=== PATIENT | male | born 1955 | race Caucasian/White ===

== ENCOUNTER 2017-01-23 02:32 | Inpatient (IN) | payer OTHER ==
[2017-01-23] VITALS (10 sets, daily range): BP systolic 118–146; BP diastolic 64–84; PULSE 70–77; RESP 16–18; TEMP 98.2–98.8; O2SAT 94–99
[2017-01-23 02:53] LABS: I-STAT POTASSIUM 4.1 MMOL/L (3.5-4.9)
[2017-01-23 02:54] LABS: AUTOMATED NEUTROPHIL # 7.3 TH/MM3 (1.8-7.7); BASOPHIL % 0.5 % (0.0-2.0); EOSINOPHIL # 0.2 TH/MM3 (0-0.4); HEMO FLAGS DIFF FINAL; LYMPH % 19.5 % (9.0-44.0); MEAN CELL VOLUME 91.1 FL (80.0-100.0); MEAN CORPUSCULAR HEMOGLOBIN 31.1 PG (27.0-34.0); MEAN CORPUSCULAR HGB CONC 34.1 % (32.0-36.0); MONO % 7.2 % (0.0-8.0); NEUT % 70.8 % (16.0-70.0); PLATELET COUNT 155 TH/MM3 (150-450); RED BLOOD COUNT 5.06 MIL/MM3 (4.50-5.90); RED CELL DISTRIBUTION WIDTH 13.6 % (11.6-17.2); WHITE BLOOD COUNT 10.4 TH/MM3 (4.0-11.0)
--- NOTE | 2017-01-23 03:11 | RADRPT ---
EXAM DATE/TIME: 01/23/2017 02:57 [facility] COMPARISON: No previous studies available for comparison. INDICATIONS : Trauma alert, industrial work accident RADIATION DOSE: 57.93 CTDIvol (mGy) MEDICAL HISTORY : None SURGICAL HISTORY : None. ENCOUNTER: Initial ACUITY: 1 day PAIN SCALE: 0/10 LOCATION: cranial TECHNIQUE: Multiple contiguous axial images were obtained of the head. Using automated exposure control and adj ustment of the mA and/or kV according to patient size, radiation dose was kept as low as reasonably a chievable to obtain optimal diagnostic quality images. FINDINGS: CEREBRUM: The ventricles are normal for age. No evidence of midline shift, mass lesion, hemorrhage or acute in farction. No extra-axial fluid collections are seen. POSTERIOR FOSSA: The cerebellum and brainstem are intact. The 4th ventricle is midline. The cerebellopontine angle i s unremarkable. EXTRACRANIAL: The visualized portion of the orbits is intact. SKULL: The calvaria is intact. No evidence of skull fracture. CONCLUSION: Normal examination. Earnest Lenz MD on January 23, 2017 at 3:07 Board Certified Radiologist. This report was verified electronically.
[2017-01-23 03:13] LABS: PROTHROMBIN TIME - PATIENT 10.9 SEC (9.8-11.6)
--- NOTE | 2017-01-23 03:16 | RADRPT ---
EXAM DATE/TIME: 01/23/2017 02:29 [facility] COMPARISON: No previous studies available for comparison. INDICATIONS : Twisting of the right wrist in an industrial machine, Trauma Alert. MEDICAL HISTORY : None. SURGICAL HISTORY : None. ENCOUNTER: Initial ACUITY: 1 day PAIN SCORE: 10/10 LOCATION: Right wrist FINDINGS: There is an intra-articular fracture of the distal radius with mild displacement. No dislocation iden tified at the wrist. There is air in the soft tissues. A true lateral film was not obtained. There is overlying bandaging or casting. CONCLUSION: 1. Intra-articular fracture of the distal radius with mild displacement. Earnest Lenz MD on January 23, 2017 at 3:13 Board Certified Radiologist. This report was verified electronically.
[2017-01-23] MEDS ORDERED: IOHEXOL 350 MG/ML 10 ML VIAL (for RAD DIAG) IV ONE (03:19)
--- NOTE | 2017-01-23 03:28 | RADRPT ---
EXAM DATE/TIME: 01/23/2017 02:57 [facility] COMPARISON: No previous studies available for comparison. INDICATIONS : Trauma alert, industrial accident RADIATION DOSE: 20.89 CTDIvol (mGy) MEDICAL HISTORY : None SURGICAL HISTORY : None. ENCOUNTER: Initial ACUITY: 1 day PAIN SCALE: 0/10 LOCATION: neck TECHNIQUE: Volumetric scanning of the cervical spine was performed. Multiplanar reconstructions in the sagittal, coronal and oblique axial planes were performed. Using automated exposure control and adjustment o f the mA and/or kV according to patient size, radiation dose was kept as low as reasonably achievable to obtain optimal diagnostic quality images. FINDINGS: There is no acute fracture or spondylolisthesis. No prevertebral soft tissue swelling. There is moder ate to severe degenerative disc disease in the cervical spine with mild AP canal stenosis at C3-4, C4 -5. There is moderate canal stenosis at C5-6 and C6-7. Multilevel foraminal encroachment also present . CONCLUSION: 1. No acute findings. Moderate degenerative disc disease in the cervical spine with some degenerative related canal stenosis as above. Earnest Lenz MD on January 23, 2017 at 3:23 Board Certified Radiologist. This report was verified electronically.
[2017-01-23] MEDS ORDERED: CHLORHEXIDINE GLUCONATE 2 % 1 PACK (2 CLOTHS) TOP PRN (03:30)
[2017-01-23] MEDS ORDERED: MISCELLANEOUS NURSING INFORMATION XX SCH (03:30)
[2017-01-23] MEDS ORDERED: HYDROmorphone HCL PF 1 MG/ML VIAL IVP PRN (03:30)
[2017-01-23] MEDS ORDERED: SODIUM CHLORIDE 0.9% FLUSH 10 ML FLUSH IV FLUSH PRN (03:30)
--- NOTE | 2017-01-23 03:30 | RADRPT ---
EXAM DATE/TIME: 01/23/2017 02:57 [facility] COMPARISON: No previous studies available for comparison. INDICATIONS : Trauma alert, industrial work accident. RADIATION DOSE: 64.19 CTDIvol (mGy) MEDICAL HISTORY : None SURGICAL HISTORY : None. ENCOUNTER: Initial ACUITY: 1 day PAIN SCORE: 0/10 LOCATION: facial TECHNIQUE: Volumetric scanning of the facial bones was performed. Using automated exposure control and adjustme nt of the mA and/or kV according to patient size, radiation dose was kept as low as reasonably achiev able to obtain optimal diagnostic quality images. FINDINGS: No acute facial bone fracture is identified. There is mucosal thickening in the right maxillary sinus . No bony destructive change. Globes intact. CONCLUSION: 1. No acute findings. Earnest Lenz MD on January 23, 2017 at 3:26 Board Certified Radiologist. This report was verified electronically.
--- NOTE | 2017-01-23 03:38 | RADRPT ---
EXAM DATE/TIME: 01/23/2017 03:06 [facility] COMPARISON: No previous studies available for comparison. INDICATIONS : Trauma alert, industrial accident IV CONTRAST: 97 cc Omnipaque 350 (iohexol) IV ; Cumulative dose for multiple exams. ORAL CONTRAST: No oral contrast ingested. RADIATION DOSE: 17.95 CTDIvol (mGy) ; Combined studies - Thorax/Abdomen/Pelvis MEDICAL HISTORY : None SURGICAL HISTORY : None. ENCOUNTER: Initial ACUITY: 1 day PAIN SCALE: 0/10 LOCATION: ABDOMEN TECHNIQUE: Volumetric scanning of the abdomen and pelvis was performed. Using automated exposure control and ad justment of the mA and/or kV according to patient size, radiation dose was kept as low as reasonably achievable to obtain optimal diagnostic quality images. FINDINGS: Lung bases are clear except minimal dependent atelectasis. No acute findings in the liver, spleen, adrenals, kidneys or pancreas. There are fractures through the right transverse processes of L1-L4. No other fractures are identifie d. CONCLUSION: 1. Fractures of the right transverse processes of L1-L4. No other fractures identified. No visceral i njury identified. No free air or free fluid. Earnest Lenz MD on January 23, 2017 at 3:29 Board Certified Radiologist. This report was verified electronically.
--- NOTE | 2017-01-23 03:42 | RADRPT ---
EXAM DATE/TIME: 01/23/2017 03:06 [facility] COMPARISON: No previous studies available for comparison. INDICATIONS : Trauma alert, industrial accident IV CONTRAST: 97 cc Omnipaque 350 (iohexol) IV ; Cumulative dose for multiple exams. RADIATION DOSE: 17.95 CTDIvol (mGy) ; Combined studies - Thorax/Abdomen/Pelvis MEDICAL HISTORY : None SURGICAL HISTORY : None. ENCOUNTER: Initial ACUITY: 1 day PAIN SCALE: 0/10 LOCATION: chest TECHNIQUE: Volumetric scanning of the chest was performed. Using automated exposure control and adjustment of t he mA and/or kV according to patient size, radiation dose was kept as low as reasonably achievable to obtain optimal diagnostic quality images. FINDINGS: LUNGS: There is no consolidation or pneumothorax. No concerning pulmonary nodule is visualized. PLEURA: There is no pleural thickening or pleural effusion. MEDIASTINUM: The heart and great vessels demonstrate no acute abnormality. There is no mediastinal or hilar lymph adenopathy. AXILLAE: Within normal limits. No lymphadenopathy. SKELETAL: Within normal limits for patient age. MISCELLANEOUS: The visualized upper abdominal organs demonstrate no acute abnormality. CONCLUSION: 1. No acute findings on chest CT. Specifically no effusion or pneumothorax. No fractures identified. Earnest Lenz MD on January 23, 2017 at 3:37 Board Certified Radiologist. This report was verified electronically.
--- NOTE | 2017-01-23 03:48 | RADRPT ---
EXAM DATE/TIME: 01/23/2017 02:29 [facility] COMPARISON: No previous studies available for comparison. INDICATIONS : Trauma Alert, arm twisted in industrial machine and patient slammed to the ground. MEDICAL HISTORY : None. SURGICAL HISTORY : None. ENCOUNTER: Initial ACUITY: 1 day PAIN SCORE: 8/10 LOCATION: Left tibia FINDINGS: There is a mildly displaced proximal fibular shaft fracture. No dislocation. No other fractures ident ified. CONCLUSION: 1. Mildly displaced proximal left fibular shaft fracture. Earnest Lenz MD on January 23, 2017 at 3:45 Board Certified Radiologist. This report was verified electronically.
--- NOTE | 2017-01-23 03:49 | RADRPT ---
EXAM DATE/TIME: 01/23/2017 02:29 [facility] COMPARISON: No previous studies available for comparison. INDICATIONS : Trauma Alert, arm twisted in industrial machine and patient slammed to the ground. MEDICAL HISTORY : None. SURGICAL HISTORY : None. ENCOUNTER: Initial ACUITY: 1 day PAIN SCORE: 0/10 LOCATION: Bilateral chest FINDINGS: A single view of the chest demonstrates the lungs to be symmetrically aerated without evidence of mas s, infiltrate or effusion. The cardiomediastinal contours are unremarkable. Osseous structures are intact. CONCLUSION: No acute disease. Earnest Lenz MD on January 23, 2017 at 3:47 Board Certified Radiologist. This report was verified electronically.
--- NOTE | 2017-01-23 03:49 | RADRPT ---
EXAM DATE/TIME: 01/23/2017 02:29 [facility] COMPARISON: No previous studies available for comparison. INDICATIONS : Trauma Alert, arm twisted in industrial machine and patient slammed to the ground. MEDICAL HISTORY : None. SURGICAL HISTORY : None. ENCOUNTER: Initial ACUITY: 1 day PAIN SCORE: 0/10 LOCATION: Bilateral pelvis FINDINGS: A single frontal view of the pelvis demonstrates no evidence of fracture. The bony pelvic ring is in tact. Bony mineralization is normal. The soft tissues are intact. CONCLUSION: Unremarkable examination of the pelvis. Earnest Lenz MD on January 23, 2017 at 3:47 Board Certified Radiologist. This report was verified electronically.
--- NOTE | 2017-01-23 03:49 | RADRPT ---
EXAM DATE/TIME: 01/23/2017 02:29 [facility] COMPARISON: No previous studies available for comparison. INDICATIONS : Trauma Alert, arm twisted in industrial machine and patient slammed to the ground. MEDICAL HISTORY : None. SURGICAL HISTORY : None. ENCOUNTER: Initial ACUITY: 1 day PAIN SCORE: 5/10 LOCATION: Right ankle FINDINGS: Two view examination was performed of the right ankle. The bony structures are in normal alignment. No evidence of fracture, dislocation, or soft tissue swelling. No radiopaque foreign bodies are see n. Bony mineralization is normal. CONCLUSION: Unremarkable limited examination of the right ankle. Earnest Lenz MD on January 23, 2017 at 3:46 Board Certified Radiologist. This report was verified electronically.
--- NOTE | 2017-01-23 03:51 | HHI.HP ---
History of Present Illness Primary Care Physician Admission Diagnosis Diagnoses: History of Present Illness 61 y.o male-was caught in a machine by his right hand -tossed to the floor- neuro intact,HD normal-c/o pain right UE-has open wound right wrist- neurovascular intact. Review of Systems Constitutional: DENIES: Diaphoretic episodes, Fatigue, Fever, Weight gain, Weight loss, Chills, Dizziness, Change in appetite, Night Sweats Endocrine: DENIES: Heat/cold intolerance, Polydipsia, Polyuria, Polyphagia Eyes: DENIES: Blurred vision, Diplopia, Eye inflammation, Eye pain, Vision loss , Photosensitivity, Double Vision Ears, nose, mouth, throat: DENIES: Tinnitus, Hearing loss, Vertigo, Nasal discharge, Oral lesions, Throat pain, Hoarseness, Ear Pain, Running Nose, Epistaxis, Sinus Pain, Toothache, Odynophagia Respiratory: DENIES: Apneas, Cough, Snoring, Wheezing, Hemoptysis, Sputum production, Shortness of breath Cardiovascular: DENIES: Chest pain, Palpitations, Syncope, Dyspnea on Exertion , PND, Lower Extremity Edema, Orthopnea, Claudication Gastrointestinal: DENIES: Abdominal pain, Black stools, Bloody stools, Constipation, Diarrhea, Nausea, Vomiting, Difficulty Swallowing, Anorexia Genitourinary: DENIES: Sexual dysfunction, Urinary frequency, Urinary incontinence, Urgency, Hematuria, Dysuria, Nocturia, Penile Discharge, Testicular Pain, Testicular Swelling Musculoskeletal: DENIES: Joint pain, Muscle aches, Stiffness, Joint Swelling, Back pain, Neck pain Integumentary: DENIES: Abnormal pigmentation, Nail changes, Pruritus, Rash Hematologic/lymphatic: DENIES: Bruising, Lymphadenopathy Immunologic/allergic: DENIES: Eczema, Urticaria Neurologic: DENIES: Abnormal gait, Headache, Localized weakness, Paresthesias, Seizures, Speech Problems, Tremor, Poor Balance Psychiatric: DENIES: Anxiety, Confusion, Mood changes, Depression, Hallucinations, Agitation, Suicidal Ideation, Homicidal Ideation, Delusions Past Family Social History Allergies: Coded Allergies: No Known Allergies (Unverified , 01/23/17) Past Medical History none Past Surgical History none Reported Medications none Active Ordered Medications fentanyl Family History none Social History no etoh,no drugs Physical Exam Physical Exam GENERAL: This is a well-nourished, well-developed patient, in no apparent distress. SKIN: abrasion forehead 2 cm HEAD: Atraumatic. Normocephalic. No temporal or scalp tenderness. EYES: Pupils equal round and reactive. Extraocular motions intact. No scleral icterus. No injection or drainage. ENT: Nose without bleeding, purulent drainage or septal hematoma. Throat without erythema, tonsillar hypertrophy or exudate. Uvula midline. Airway patent. NECK: Trachea midline. No JVD or lymphadenopathy. Supple, nontender, no meningeal signs. CARDIOVASCULAR: Regular rate and rhythm without murmurs, gallops, or rubs. RESPIRATORY: Clear to auscultation. Breath sounds equal bilaterally. No wheezes , rales, or rhonchi. GASTROINTESTINAL: Abdomen soft, non-tender, nondistended. No hepato-splenomegaly , or palpable masses. No guarding. MUSCULOSKELETAL: right wrist-open wound 6x5cm dirty-anterior,right ankle swelling,left tib fib swelling-neuro vascular intact all4 extremities NEUROLOGICAL: Awake and alert. Cranial nerves II through XII intact. Motor and sensory grossly within normal limits. Five out of 5 muscle strength in all muscle groups. Normal speech. Laboratory Laboratory Tests Test 01/23/17 02:38 White Blood Count 10.4 Red Blood Count 5.06 Hemoglobin 15.7 Bedside Hemoglobin 15.6 Hematocrit 46.0 Bedside Hematocrit 46.0 Mean Corpuscular Volume 91.1 Mean Corpuscular Hemoglobin 31.1 Mean Corpuscular Hemoglobin 34.1 Concent Red Cell Distribution Width 13.6 Platelet Count 155 Mean Platelet Volume 8.7 Neutrophils (%) (Auto) 70.8 Lymphocytes (%) (Auto) 19.5 Monocytes (%) (Auto) 7.2 Eosinophils (%) (Auto) 2.0 Basophils (%) (Auto) 0.5 Neutrophils # (Auto) 7.3 Lymphocytes # (Auto) 2.0 Monocytes # (Auto) 0.8 Eosinophils # (Auto) 0.2 Basophils # (Auto) 0.0 CBC Comment DIFF FINAL Differential Comment Prothrombin Time 10.9 Prothromb Time International 1.0 Ratio Activated Partial 21.0 Thromboplast Time Bedside Sodium 144 Bedside Potassium 4.1 Bedside Chloride 108 Bedside Blood Urea Nitrogen 28 Bedside Creatinine 1.1 Bedside Glucose 149 Blood Type O POSITIVE Result Diagram: 01/23/17 0238 Imaging right UE xray-intra articular radius fx CT head, cspine,CAP-negative injury tib fiv xary left-fibula shaft fx Assessment and Plan Assessment and Plan open radius fx right fibula fx left no systemic injuries admit to trauma floor d/w ortho washout in the trauma bay with NS 2GM Ancef iv given Nadeen Kaur MD Jan 23, 2017 03:51
[2017-01-23] MEDS ORDERED: CHLORHEXIDINE GLUCONATE 2 % 1 PACK (2 CLOTHS) TOP SCH (04:00)
--- NOTE | 2017-01-23 04:02 | RADRPT ---
EXAM DATE/TIME: 01/23/2017 03:06 [facility] COMPARISON: No previous studies available for comparison. INDICATIONS : Trauma alert, industrial accident RADIATION DOSE: ; Reconstructed from previous dataset MEDICAL HISTORY : None SURGICAL HISTORY : None. ENCOUNTER: Initial ACUITY: 1 day PAIN SCALE: 0/10 LOCATION: back TECHNIQUE: Volumetric scanning of the thoracic spine was performed. Multiplanar reconstructions in the sagittal , coronal and oblique axial planes were performed. Using automated exposure control and adjustment o f the mA and/or kV according to patient size, radiation dose was kept as low as reasonably achievable to obtain optimal diagnostic quality images. FINDINGS: There is moderate degenerative disc disease in the thoracic spine. No acute fracture or subluxation i n the thoracic spine. No canal stenosis or nerve root compression identified. CONCLUSION: 1. No acute findings within the thoracic spine. Moderate degenerative disc disease throughout. Earnest Lenz MD on January 23, 2017 at 3:55 Board Certified Radiologist. This report was verified electronically.
--- NOTE | 2017-01-23 04:08 | RADRPT ---
EXAM DATE/TIME: 01/23/2017 03:06 [facility] COMPARISON: No previous studies available for comparison. INDICATIONS : Trauma alert, industrial accident RADIATION DOSE: ; Reconstructed from previous dataset MEDICAL HISTORY : None SURGICAL HISTORY : None. ENCOUNTER: Initial ACUITY: 1 day PAIN SCALE: 0/10 LOCATION: lower back TECHNIQUE: Volumetric scanning of the lumbar spine was performed. Multiplanar reconstructions in the sagittal, coronal and oblique axial planes were performed. Using automated exposure control and adjustment of the mA and/or kV according to patient size, radiation dose was kept as low as reasonably achievable t o obtain optimal diagnostic quality images. FINDINGS: There are fractures of the right transverse processes of L1-L4 with mild displacement. No vertebral b jeffrey fractures identified. There is no subluxation. No significant bony canal stenosis. No bony destru ctive changes. CONCLUSION: 1. Fractures of the right-sided transverse processes of L1-L4 with mild displacement. No other lumbar spine fractures identified. Earnest Lenz MD on January 23, 2017 at 4:01 Board Certified Radiologist. This report was verified electronically.
--- NOTE | 2017-01-23 04:22 | PD ---
HPI Chief Complaint: Trauma (Alert) Time Seen by Provider: 02:34 Travel History International Travel<30 days: No Contact w/Intl Traveler<30days: No History of Present Illness HPI Middle age man with no PMH brought in as trauma alert s/p getting his right hand caught in a machine and rolling over. Pt has open deformity of right arm. +Laceration in left scalp and mid forehead. Pt is mainly complaining of right arm pain and left leg pain. Distal pulses intact. Pt is AAOx3 with GCS 15 in trauma bay. Xray in trauma bay showed left fibula fracture and right distal radius fracture. Splints were placed in trauma bay. CXR and xray pelvis negative. Pt transported to CT scan with trauma surgeon. Trauma surgeon will contact orthopedic surgery. PFSH Social History Tobacco Use: No Allergies-Medications (Allergen,Severity, Reaction): Coded Allergies: No Known Allergies (Unverified , 01/23/17) Reported Meds & Prescriptions Reported Meds & Active Scripts Active [place] (Hydrocodone-Acetaminophen) 10-325 Mg Tab 1 Tab PO Q4H PRN Review of Systems Except as stated in HPI: all other systems reviewed are Neg Physical Exam Narrative GENERAL: Middle age male in moderate distress. SKIN: Focused skin assessment warm/dry. HEAD: +Laceration in left parietal scalp and mid forehead. EYES: Pupils equal and round. No scleral icterus. No injection or drainage. ENT: No nasal bleeding or discharge. Mucous membranes pink and moist. NECK: Trachea midline. No JVD. CARDIOVASCULAR: Regular rate and rhythm. No murmur appreciated. RESPIRATORY: No accessory muscle use. Clear to auscultation. Breath sounds equal bilaterally. GASTROINTESTINAL: Abdomen soft, non-tender, nondistended. No rebound tenderness or guarding. BACK: +Abrasion right L4-L5 region. MUSCULOSKELETAL: RUE: +degloving injury, open wound in right wrist, can see bone in right wrist. Radial pulse intact. Pt moving digits. +TTP left knee. Distal pulses intact in both lower extremities. Sensation intact. NEUROLOGICAL: GCS 15. Awake and alert. No obvious cranial nerve deficits. Motor grossly within normal limits. Normal speech. PSYCHIATRIC: Appropriate mood and affect; insight and judgment normal. Data Data Last Documented VS Vital Signs Date Time Temp Pulse Resp B/P Pulse Ox O2 Delivery O2 Flow Rate FiO2 01/23/17 04:00 71 16 118/64 94 Nasal Cannula 2 Orders Fentanyl Inj (Fentanyl Inj) (01/23/17 02:35) I-Stat Profile (01/23/17 02:34) I-Stat Creatinine (01/23/17 02:34) Complete Blood Count With Diff (01/23/17 02:34) Prothrombin Time / Inr (Pt) (01/23/17 02:34) Act Partial Throm Time (Ptt) (01/23/17 02:34) Type And Screen (01/23/17 02:34) Chest, Single Ap (01/23/17 02:34) Pelvis, Ap Only (Routine) (01/23/17 02:34) Ct Brain W/O Iv Contrast(Rout) (01/23/17 02:34) Ct Cerv Spine W/O Contrast (01/23/17 02:34) Ct Abd/Pel W Iv Contrast(Rout) (01/23/17 02:34) Ct Thorax/ Chest W Iv Contrast (01/23/17 02:34) Ct Thor Spine W/O Contrast (01/23/17 02:34) Ct Lumb Spine W/O Contrast (01/23/17 02:34) Ct Facial Bones W/O Iv Cont (01/23/17 02:34) Iv Access Insert/Monitor (01/23/17 02:34) Ecg Monitoring (01/23/17 02:34) Oximetry (01/23/17 02:34) Oxygen Administration (01/23/17 02:34) Ankle, Limited (Ap&Lat) (01/23/17 ) Tibia/Fibula (Ap/Lat) (01/23/17 ) Wrist, Limited (Ap&Lat) (01/23/17 ) Iohexol 350 Inj (Omnipaque 350 Inj) (01/23/17 03:19) Admit To Inpatient (01/23/17 ) Vital Signs (Adult) XAVI.QSHIFT (01/23/17 03:17) Intake + Output XAVI.Q8H (01/23/17 03:17) Diet Npo (01/23/17 Breakfast) Scd / [place] / Foot Pump XAVI.QSHIFT (01/23/17 03:17) ^ Instruction (01/23/17 03:17) Complete Blood Count With Diff (01/24/17 06:00) Comprehensive Metabolic Panel (01/24/17 06:00) Lactated Ringer's 1000 Ml Inj (Lr 1000 M (01/23/17 03:17) Sodium Chloride 0.9% Flush (Ns Flush) (01/23/17 03:30) Hydromorphone Pf Inj (Dilaudid Pf Inj) (01/23/17 03:30) Magnesium Hydroxide Liq (Milk Of Magnesi (01/23/17 03:30) ^ Initiate Protocol (01/23/17 03:17) ^ Instruction (01/23/17 03:17) [facility] (01/23/17 03:30) Chlorhexidine 2% Cloth (Chlorhexidine 2% (01/23/17 04:00) Chlorhexidine 2% Cloth (Chlorhexidine 2% (01/23/17 03:30) [facility]sa Pcr Surveillance (01/23/17 03:17) Inpatient Certification (01/23/17 ) Consult Orthopedic (01/23/17 ) Cefazolin Inj (Ancef Inj) (01/23/17 04:00) Methocarbamol (Robaxin) (01/23/17 06:00) Fiberglass Sugartong Sp Ad Arm (01/23/17 ) Sling Cradle Arm (01/23/17 ) Collar [place] (01/23/17 ) Splint Post Long Leg Ad Alum (01/23/17 ) Admit Order (Ed Use Only) (01/23/17 04:17) Labs Laboratory Tests Test 01/23/17 02:38 White Blood Count 10.4 TH/MM3 Red Blood Count 5.06 MIL/MM3 Hemoglobin 15.7 GM/DL Bedside Hemoglobin 15.6 G/DL Hematocrit 46.0 % Bedside Hematocrit 46.0 % Mean Corpuscular Volume 91.1 FL Mean Corpuscular Hemoglobin 31.1 PG Mean Corpuscular Hemoglobin 34.1 % Concent Red Cell Distribution Width 13.6 % Platelet Count 155 TH/MM3 Mean Platelet Volume 8.7 FL Neutrophils (%) (Auto) 70.8 % Lymphocytes (%) (Auto) 19.5 % Monocytes (%) (Auto) 7.2 % Eosinophils (%) (Auto) 2.0 % Basophils (%) (Auto) 0.5 % Neutrophils # (Auto) 7.3 TH/MM3 Lymphocytes # (Auto) 2.0 TH/MM3 Monocytes # (Auto) 0.8 TH/MM3 Eosinophils # (Auto) 0.2 TH/MM3 Basophils # (Auto) 0.0 TH/MM3 CBC Comment DIFF FINAL Differential Comment Prothrombin Time 10.9 SEC Prothromb Time International 1.0 RATIO Ratio Activated Partial 21.0 SEC Thromboplast Time Bedside Sodium 144 MMOL/L Bedside Potassium 4.1 MMOL/L Bedside Chloride 108 MMOL/L Bedside Blood Urea Nitrogen 28 MG/DL Bedside Creatinine 1.1 MG/DL Bedside Glucose 149 MG/DL Blood Type O POSITIVE Antibody Screen NEGATIVE MDM Medical Decision Making Medical Screen Exam Complete: Yes Emergency Medical Condition: Yes Differential Diagnosis Fracture vs. contusion Narrative Course Middle age male s/p industrial injury. Xray of right wrist showed intra- articular fracture of distal radius with mild displacement. Xray of left tib/ fib showed mildly displaced proximal left fibular shaft fracture. CT LS spine showed fractures of right sided transverse processes of L1-L4 with mild displacement. CT brain, cspine, chest, MF negative. Orthopedic surgeon contacted by trauma. Pt admitted to trauma service. Diagnosis Primary Impression: Multiple fractures Admitting Information Admitting Physician Requests: Admit Scripts Hydrocodone-Acetaminophen ([place])10-325 Mg Tab1 Tab PO Q4H PRN (PAIN) #60 TAB Ref 0 Prov:Rian Farias MD 01/23/17 Laurel Hart DO Jan 23, 2017 04:22
[2017-01-23] MEDS: LACTATED RINGER'S 1000 ML INJ 1,000 ML IV SCH ×3 (05:09→21:03)
[2017-01-23] MEDS: METHOCARBAMOL 500 MG TAB PO SCH ×3 (06:00→21:03)
--- NOTE | 2017-01-23 07:17 | RADRPT ---
EXAM DATE/TIME: 01/23/2017 07:05 [facility] COMPARISON: No previous studies available for comparison. INDICATIONS : Right forearm pain, caught in industrial machine MEDICAL HISTORY : None. SURGICAL HISTORY : None. ENCOUNTER: Initial ACUITY: 1 day PAIN SCORE: 8/10 LOCATION: Right forearm FINDINGS: Two view examination of the right forearm demonstrates small defect and associated fracture along the distal radius laterally. Soft tissue injury also noted. Ulna is intact. CONCLUSION: Small defect and associated fracture along the distal radius laterally. Jefe Stafford MD on January 23, 2017 at 7:14 Board Certified Radiologist. This report was verified electronically.
--- NOTE | 2017-01-23 07:25 | RADRPT ---
EXAM DATE/TIME: 01/23/2017 07:09 [facility] COMPARISON: No previous studies available for comparison. INDICATIONS : Right elbow pain, caught in machine MEDICAL HISTORY : None. SURGICAL HISTORY : None. ENCOUNTER: Initial ACUITY: 1 day PAIN SCORE: 8/10 LOCATION: Right Elbow FINDINGS: Two view examination of the right elbow demonstrates soft tissue swelling with soft tissue laceration posteriorly need near the olecranon. There does appear to be fracture of a spur posteriorly. There i s also a bony fragment medially adjacent to the medial humeral condyle. CONCLUSION: 1. Fracture of a spur along the posterior calcaneus with soft tissue injury/laceration. 2. Small bony fragment seen medially adjacent to the medial humeral condyle. Jefe Stafford MD on January 23, 2017 at 7:20 Board Certified Radiologist. This report was verified electronically.
[2017-01-23] MEDS ORDERED: GENTAMICIN SULFATE 80 MG/2 ML VIAL ONE ×2 (08:47→09:40)
[2017-01-23] MEDS ORDERED: MIDAZOLAM HCL 2 MG/2 ML VIAL ONE (09:20)
[2017-01-23] MEDS ORDERED: ACETAMINOPHEN 1000 MG/100 ML VIAL IV ONE (09:20)
[2017-01-23] MEDS ORDERED: FAMOTIDINE 20 MG/2 ML VIAL ONE (09:21)
[2017-01-23] MEDS ORDERED: fentaNYL CITRATE 250 MCG/5 ML AMP ONE (09:21)
[2017-01-23] MEDS ORDERED: DEXAMETHASONE SOD PHOS 4 MG/ML VIAL ONE ×2 (09:21→09:27)
[2017-01-23] MEDS ORDERED: ceFAZolin 2 GM PREMIX 50 ML ONE (09:40)
[2017-01-23] MEDS ORDERED: HYDR-3366 PO (10:42)
[2017-01-23] MEDS ORDERED: MORPHINE SULFATE 4 MG/ML INJ IV PUSH PRN (10:45)
--- NOTE | 2017-01-23 10:52 | HHI.PR ---
cc: Rian Hernandez MD Immediate Post Op Note Procedure Date: Jan 23, 2017 Pre Op Diagnosis: Open right distal radius fracture, complex laceration right wrist, laceration to right elbow, closed left fibular shaft fracture Post Op Diagnosis: Surgeon: Rian Hernandez Web Operations Administrator(s): SHLOMO Young PA-C The surgical procedure was assisted by my physician dental hygiene administrative assistant. My P.A. presence was necessary throughout this case for the manipulation and positioning of the surgical extremity. My P.A. was assisting me throughout the duration of this procedure. The skill set of a physician dental hygiene administrative assistant was medically necessary to complete this procedure. During the surgical case the surgical supply assistant was working at the back table and the physician dental hygiene administrative assistant was directly assisting me. Procedure: Irrigation and debridement of right distal radius fracture, closed treatment of right distal radius fracture with manipulation, complex closure 10 cm laceration right wrist, excision of olecranon bursa Estimated blood loss: 50 mL Anesthesia: General Drains: None Patient to: PACU Rian Hernandez MD Jan 23, 2017 10:52
[2017-01-23] MEDS ORDERED: BACITRACIN TOP OINT 15 GM TUBE ONE (10:55)
--- NOTE | 2017-01-23 11:11 | MB ---
cc: DANIELLE HUNT DATE OF ADMISSION 01/23/2017 DATE OF CONSULTATION 01/23/2017 REASON FOR CONSULTATION 1. Left fibular fracture. 2. Right elbow laceration. 3. Right open distal radius fracture. HISTORY This patient known as Henrique Roper is a 61-year-old male who was at work. He was using a machine that wraps cargo in clear plastic wrap. He got caught in the machine and thrown. He landed on the concrete floor. He had immediate right wrist pain as well as left leg pain. He presented to the emergency room where he was found to have a large laceration over the dorsum of his wrist. He was also noted to have right distal radius fracture, right elbow laceration, and closed left fibular fracture. He is currently awake and alert in the emergency department. The pain is worse with movement and is improved with rest. PAST MEDICAL HISTORY ALLERGIES None. MEDICATIONS None. ILLNESSES None. SURGERIES None. SOCIAL HISTORY The patient denies alcohol, tobacco or drug use. [place] FAMILY HISTORY Non-contributory. REVIEW OF SYSTEMS The patient denies headache, visual changes, neck pain, chest pain, shortness of breath, abdominal pain. Denies any recent weight loss or numbness or tingling of his extremities. He complains of right wrist and elbow pain. He also complains of left calf pain. PHYSICAL EXAMINATION GENERAL: The patient is a well-developed, well-nourished 61-year-old male in no acute distress. He is awake and alert. He is alert and oriented x 3. VITAL SIGNS: Pulse 70, respirations 18, blood pressure 137/71. His sat is 94% on 2 liters nasal cannula. HEAD: The patient is a small laceration over his forehead. Pupils are equal. NECK: Soft and nontender. Trachea is midline. ABDOMEN: Soft, nontender, nondistended. EXTREMITIES: Examination of the right arm reveals no tenderness around his shoulder. He has tenderness around the elbow. There is a 2-cm laceration over the olecranon. The forearm compartments are soft. He has a 4-inch laceration over the dorsum of his wrist. There is significant contamination of the wound. He has good capillary refill in his fingers. Radial pulse is palpable. Examination of the left arm reveals no pain with shoulder, elbow or wrist motion. Skin is intact. Radial pulses palpable. Sensation is intact. Examination of the left leg reveals minimal pain with gentle hip, knee or ankle motion. He is tender to palpation over the fibular shaft. Calf compartments are soft. He has intact sensation of the left foot. Dorsalis pedis pulses palpable. He has mild tenderness around the lateral ankle ligaments. Examination of the right leg reveals minimal pain with hip, knee or ankle motion. Skin is intact. Dorsalis pedis pulses palpable. He has intact sensation in the right foot. X-RAYS X-rays of left tibia were reviewed. X-rays reveal a mildly displaced mid-shaft fibular fracture. X-rays of the right elbow were reviewed. X-rays revealed no evidence of acute fracture. He has osteophyte around the olecranon. X-rays of the right wrist were reviewed. The patient has a minimally displaced radial styloid fracture. IMPRESSION 1. Large laceration on the dorsum of right wrist. 2. Open right distal radius fracture. 3. Right elbow laceration 4. Left fibula shaft fracture. PLAN The treatment options were discussed with the patient. At this point I would recommend - 1. Irrigation and debridement of right wrist with possible open reduction, internal fixation of the distal radius. I also recommend wound closure. 2. I will evaluate the elbow laceration as well. The patient may need irrigation and debridement of this as well. 3. I would recommend nonoperative treatment of the left fibula. The risks of surgery including bleeding, infection, injury to arteries, nerves or blood vessels, nonunion, malunion, painful hardware as well as medical complications including blood clot, stroke, heart attack and were discussed. All questions were answered. I will plan on surgery today. A mid-level provider in my office, nurse practitioner or PA, may see this patient on a follow-up basis and continue to implement the objective of this plan including: Starting or adjusting medications, injections of muscle, tendon, bursa or joints, cast application, orthotic or brace application, physical therapy, further radiographic studies including x-ray, MRI, CT, ultrasounds or bone scan, vascular studies, neurologic studies, or other specialist consultations, and proceeding with surgical management as appropriate. MD JAN Messer/MARIA DEL CARMEN /10:46 AM /11:02 AM
[2017-01-23] MEDS ORDERED: *MEPERIDINE 25 MG INJ VIAL PERIprocedural Use ONLY ONE (11:22)
[2017-01-23] MEDS ORDERED: PROPOFOL 200 MG/20 ML AMP IV ONE (12:00)
[2017-01-23] MEDS ORDERED: ONDANSETRON HCL 4 MG/2 ML VIAL IV PUSH ONE (12:00)
[2017-01-23] MEDS ORDERED: NEOSTIGMINE 3 MG/3 ML SYR IV ONE (12:00)
[2017-01-23] MEDS ORDERED: LACTATED RINGER'S 1000 ML INJ 1,000 ML IV ONE (12:00)
[2017-01-23] MEDS ORDERED: *morphine SULFATE 8 MG/ML PERIprocedure ONLY ONE ×2 (12:16→14:35)
--- NOTE | 2017-01-23 12:22 | RADRPT ---
EXAM DATE/TIME: 01/23/2017 11:43 [facility] COMPARISON: CHEST SINGLE AP, January 23, 2017, 2:29. INDICATIONS : Pulmonary edema MEDICAL HISTORY : None. SURGICAL HISTORY : None. ENCOUNTER: Initial ACUITY: 1 day PAIN SCORE: Non-responsive. LOCATION: Bilateral chest FINDINGS: A single view of the chest demonstrates the lungs to be symmetrically aerated without evidence of mas s, infiltrate or effusion. The cardiomediastinal contours are unremarkable. Osseous structures are intact. CONCLUSION: No acute disease. Scott Cowart Jr., MD on January 23, 2017 at 12:19 Board Certified Radiologist. This report was verified electronically.
--- NOTE | 2017-01-23 14:54 | RADRPT ---
EXAM DATE/TIME: 01/23/2017 10:29 [facility] COMPARISON: WRIST RIGHT LIMITED(AP & LAT), January 23, 2017, 2:29. INDICATIONS : Evaluate fracture, I & D right wrist. MEDICAL HISTORY : None. SURGICAL HISTORY : None. ENCOUNTER: Subsequent ACUITY: 1 day PAIN SCORE: Non-responsive. LOCATION: Right wrist. FINDINGS: 2 intraoperative spot images demonstrating radial styloid fracture. CONCLUSION: 2 intraoperative spot images which a radial styloid fracture. Diego Goss MD on January 23, 2017 at 14:51 Board Certified Radiologist. This report was verified electronically.
[2017-01-23] MEDS: ceFAZolin 2 GM PREMIX 50 ML IV SCH (16:50)
[2017-01-23] MEDS: ACETAMINOPHEN/HYDROcodone 325 MG/10 MG TAB PO PRN (17:54)
[2017-01-23] MEDS: GENTAMICIN 80 MG PREMIX 100 ML IV SCH (17:56)
[2017-01-23] MEDS: MAGNESIUM HYDROXIDE SUSP 30 ML CUP PO PRN (21:04)
[2017-01-24] VITALS (7 sets, daily range): BP systolic 122–137; BP diastolic 66–79; PULSE 71–82; RESP 16–18; TEMP 97.2–98.3; O2SAT 94–97
[2017-01-24] MEDS: ceFAZolin 2 GM PREMIX 50 ML IV SCH ×3 (01:04→16:32)
[2017-01-24] MEDS: GENTAMICIN 80 MG PREMIX 100 ML IV SCH ×3 (02:39→17:54)
[2017-01-24] MEDS: METHOCARBAMOL 500 MG TAB PO SCH ×3 (05:30→20:45)
[2017-01-24 06:47] LABS: AUTOMATED NEUTROPHIL # 7.5 TH/MM3 (1.8-7.7); BASOPHIL % 0.1 % (0.0-2.0); EOSINOPHIL % 0.1 % (0.0-4.0); HEMATOCRIT 38.6 % (39.0-51.0); HEMO FLAGS DIFF FINAL; LYMPH % 9.1 % (9.0-44.0); LYMPHOCYTE # 0.8 TH/MM3 (1.0-4.8); MEAN CELL VOLUME 89.8 FL (80.0-100.0); MEAN CORPUSCULAR HGB CONC 35.6 % (32.0-36.0); MONO % 9.5 % (0.0-8.0); NEUT % 81.2 % (16.0-70.0); PLATELET COUNT 131 TH/MM3 (150-450); RED BLOOD COUNT 4.29 MIL/MM3 (4.50-5.90); RED CELL DISTRIBUTION WIDTH 13.7 % (11.6-17.2); WHITE BLOOD COUNT 9.3 TH/MM3 (4.0-11.0)
[2017-01-24 07:11] LABS: ALKALINE PHOSPHATASE 52 U/L (45-117); ALT (GPT) 28 U/L (12-78); ANION GAP 8 MEQ/L (5-15); AST (GOT) 37 U/L (15-37); BLOOD UREA NITROGEN 14 MG/DL (7-18); CHLORIDE 108 MEQ/L (98-107); GLOMERULAR FILTRATION RATE 70 ML/MIN (>89); POTASSIUM 3.9 MEQ/L (3.5-5.1); SODIUM (NA) 141 MEQ/L (136-145); TOTAL BILIRUBIN ADULT 0.9 MG/DL (0.2-1.0)
--- NOTE | 2017-01-24 08:11 | PD.ORT.PN ---
Subjective Subjective Remarks Pain controlled. No new complaints Objective Vitals Vital Signs Date Time Temp Pulse Resp B/P Pulse Ox O2 Delivery O2 Flow Rate FiO2 01/24/17 07:53 96 Nasal Cannula 2.00 01/24/17 03:55 97.5 71 16 124/66 97 01/24/17 00:00 97.2 76 16 122/68 96 01/23/17 21:01 96 Nasal Cannula 2.00 01/23/17 19:27 98.8 72 17 135/73 96 01/23/17 16:42 96 Nasal Cannula 3.00 01/23/17 15:10 98.2 77 18 142/84 96 01/23/17 15:00 98.4 67 15 131/78 97 Nasal Cannula 3 01/23/17 14:30 71 15 141/80 96 Nasal Cannula 3 01/23/17 14:00 79 15 159/94 96 Nasal Cannula 3 01/23/17 13:30 67 15 150/81 96 Nasal Cannula 3 01/23/17 13:00 64 15 152/85 95 Nasal Cannula 3 01/23/17 12:30 63 15 154/88 94 Nasal Cannula 3 01/23/17 12:15 65 15 158/90 94 Nasal Cannula 3 01/23/17 12:00 64 14 163/91 94 Nasal Cannula 3 01/23/17 11:45 64 14 157/90 94 Nasal Cannula 3 01/23/17 11:30 68 14 153/89 96 Simple Mask 8 01/23/17 11:22 97.6 78 14 177/86 94 Simple Mask 8 I/O 01/23/17 01/23/17 01/23/17 01/24/17 01/24/17 01/24/17 07:00 15:00 23:00 07:00 15:00 23:00 Intake Total 1600 ml 964 ml 1309 ml Output Total 50 ml 400 ml 700 ml Balance 1550 ml 564 ml 609 ml Intake Oral 600 ml 480 ml IV Total 400 ml 364 ml 829 ml Other 1200 ml Output Urine Total 0 ml 400 ml 700 ml Estimated Blood Loss 50 ml Result Diagram: 01/24/17 0604 01/24/17 0604 Imaging Last 72 hours Impressions Thoracic Spine CT 01/23/17 0234 Signed Impressions: Service Date/Time: December 03:06 - CONCLUSION: 1. No acute findings within the thoracic spine. Moderate degenerative disc disease throughout. Earnest Lenz MD Pelvis X-Ray 01/23/17233 Signed Impressions: Service Date/Time: December 02:29 - CONCLUSION: Unremarkable examination of the pelvis. Earnest Lenz MD Maxillofacial CT 01/23/17233 Signed Impressions: Service Date/Time: December 02:57 - CONCLUSION: 1. No acute findings. Earnest Lenz MD Lumbar Spine CT 01/23/17233 Signed Impressions: Service Date/Time: December 03:06 - CONCLUSION: 1. Fractures of the right-sided transverse processes of L1-L4 with mild displacement. No other lumbar spine fractures identified. Earnest Lenz MD Head CT 01/23/17233 Signed Impressions: Service Date/Time: December 02:57 - CONCLUSION: Normal examination. Earnest Lenz MD Chest X-Ray 01/23/17233 Signed Impressions: Service Date/Time: December 02:29 - CONCLUSION: No acute disease. Earnest Lenz MD Chest CT 01/23/17233 Signed Impressions: Service Date/Time: December 03:06 - CONCLUSION: 1. No acute findings on chest CT. Specifically no effusion or pneumothorax. No fractures identified. Earnest Lenz MD Cervical Spine CT 01/23/17233 Signed Impressions: Service Date/Time: December 02:57 - CONCLUSION: 1. No acute findings. Moderate degenerative disc disease in the cervical spine with some degenerative related canal stenosis as above. Earnest Lenz MD Abdomen/Pelvis CT 01/23/17233 Signed Impressions: Service Date/Time: December 03:06 - CONCLUSION: 1. Fractures of the right transverse processes of L1-L4. No other fractures identified. No visceral injury identified. No free air or free fluid. Earnest Lenz MD Wrist X-Ray 01/23/17 0000 Signed Impressions: Service Date/Time: December 10:29 - CONCLUSION: 2 intraoperative spot images which a radial styloid fracture. Diego Goss MD Wrist X-Ray 01/23/17 Signed Impressions: Service Date/Time: December 02:29 - CONCLUSION: 1. Intra-articular fracture of the distal radius with mild displacement. Earnest Lenz MD Tibia/Fibula X-Ray 01/23/17 Signed Impressions: Service Date/Time: December 02:29 - CONCLUSION: 1. Mildly displaced proximal left fibular shaft fracture. Earnest Lenz MD Radius/Ulna X-Ray 01/23/17 Signed Impressions: Service Date/Time: December 07:05 - CONCLUSION: Small defect and associated fracture along the distal radius laterally. Jefe Stafford MD Elbow X-Ray 01/23/17 Signed Impressions: Service Date/Time: December 07:09 - CONCLUSION: 1. Fracture of a spur along the posterior calcaneus with soft tissue injury/laceration. 2. Small bony fragment seen medially adjacent to the medial humeral condyle. Jefe Stafford MD Chest X-Ray 01/23/17 Signed Impressions: Service Date/Time: December 11:43 - CONCLUSION: No acute disease. Scott Cowart Jr., MD Ankle X-Ray 01/23/17 Signed Impressions: Service Date/Time: December 02:29 - CONCLUSION: Unremarkable limited examination of the right ankle. Earnest Lenz MD Objective Remarks Right upper extremity: Splint intact clean and dry. Intact sensation over the radial ulnar and median nerve distributions with good capillary refills. Is able fully extend his fingers and make a fist Lumbar spine: Pain to palpation over lumbar spine no radiculopathy Left lower extremity: No pain with hip or knee range of motion. Pain to palpation over fibula proximal third shaft. No pain with ankle range of motion. Distally intact sensation good capillary refills Assessment & Plan Assessment and Plan Irrigation debridement of right distal radius and olecranon bursa POD 1 Maintain splint and nonweightbearing right upper extremity Left fibula shaft fracture proximal third nonoperative treatment Weightbearing as tolerated bilateral lower extremities Continue antibiotics and may discharge home once 48 hours of antibiotics is completed - anticipate discharge for Friday Lumbar spine transverse fractures Follow-up with Dr. Hernandez or PA in 2 weeks Sarkis Huertas Jr. Jan 24, 2017 08:11
[2017-01-24] MEDS ORDERED: HYDR-3366 PO (08:12)
[2017-01-24] MEDS: DOCUSATE SODIUM 100 MG CAP PO SCH ×2 (10:09→19:26)
[2017-01-24] MEDS: ACETAMINOPHEN/HYDROcodone 325 MG/10 MG TAB PO PRN ×3 (10:10→16:32)
[2017-01-24] MEDS: LACTATED RINGER'S 1000 ML INJ 1,000 ML IV SCH ×2 (10:23→19:17)
--- NOTE | 2017-01-24 11:15 | HHI.PR ---
Subjective Subjective Notes PTD: 1 Patient is observed out of bed walking with PT. He is using a cane. He explained that he was caught in a packaging machine feet first, and then it caught his arm. He is worried about a wound to his head, he thinks it needs to be stapled. Objective Vitals/I&O Vital Signs Date Time Temp Pulse Resp B/P Pulse Ox O2 Delivery O2 Flow Rate FiO2 01/24/17 07:53 96 Nasal Cannula 2.00 01/24/17 03:55 97.5 71 16 124/66 Labs Laboratory Tests Test 01/24/17 06:04 White Blood Count 9.3 Red Blood Count 4.29 Hemoglobin 13.7 Hematocrit 38.6 Mean Corpuscular Volume 89.8 Mean Corpuscular Hemoglobin 32.0 Mean Corpuscular Hemoglobin 35.6 Concent Red Cell Distribution Width 13.7 Platelet Count 131 Mean Platelet Volume 9.0 Neutrophils (%) (Auto) 81.2 Lymphocytes (%) (Auto) 9.1 Monocytes (%) (Auto) 9.5 Eosinophils (%) (Auto) 0.1 Basophils (%) (Auto) 0.1 Neutrophils # (Auto) 7.5 Lymphocytes # (Auto) 0.8 Monocytes # (Auto) 0.9 Eosinophils # (Auto) 0.0 Basophils # (Auto) 0.0 CBC Comment DIFF FINAL Differential Comment Sodium Level 141 Potassium Level 3.9 Chloride Level 108 Carbon Dioxide Level 25.0 Anion Gap 8 Blood Urea Nitrogen 14 Creatinine 1.07 Estimat Glomerular Filtration 70 Rate Random Glucose 122 Calcium Level 8.3 Total Bilirubin 0.9 Aspartate Amino Transf 37 (AST/SGOT) Alanine Aminotransferase 28 (ALT/SGPT) Alkaline Phosphatase 52 Total Protein 6.1 Albumin 3.3 Radiology Last Impressions Thoracic Spine CT 01/23/17233 Signed Impressions: Service Date/Time: December 03:06 - CONCLUSION: 1. No acute findings within the thoracic spine. Moderate degenerative disc disease throughout. Earnest Lenz MD Pelvis X-Ray 01/23/17233 Signed Impressions: Service Date/Time: December 02:29 - CONCLUSION: Unremarkable examination of the pelvis. Earnest Lenz MD Maxillofacial CT 01/23/17233 Signed Impressions: Service Date/Time: December 02:57 - CONCLUSION: 1. No acute findings. Earnest Lenz MD Lumbar Spine CT 01/23/17233 Signed Impressions: Service Date/Time: December 03:06 - CONCLUSION: 1. Fractures of the right-sided transverse processes of L1-L4 with mild displacement. No other lumbar spine fractures identified. Earnest Lenz MD Head CT 01/23/17233 Signed Impressions: Service Date/Time: December 02:57 - CONCLUSION: Normal examination. Earnest Lenz MD Chest X-Ray 01/23/17233 Signed Impressions: Service Date/Time: December 02:29 - CONCLUSION: No acute disease. Earnest Lenz MD Chest CT 01/23/17233 Signed Impressions: Service Date/Time: December 03:06 - CONCLUSION: 1. No acute findings on chest CT. Specifically no effusion or pneumothorax. No fractures identified. Earnest Lenz MD Cervical Spine CT 01/23/17233 Signed Impressions: Service Date/Time: December 02:57 - CONCLUSION: 1. No acute findings. Moderate degenerative disc disease in the cervical spine with some degenerative related canal stenosis as above. Earnest Lenz MD Abdomen/Pelvis CT 01/23/17233 Signed Impressions: Service Date/Time: December 03:06 - CONCLUSION: 1. Fractures of the right transverse processes of L1-L4. No other fractures identified. No visceral injury identified. No free air or free fluid. Earnest Lenz MD Wrist X-Ray 01/23/17 Signed Impressions: Service Date/Time: December 10:29 - CONCLUSION: 2 intraoperative spot images which a radial styloid fracture. Diego Goss MD Tibia/Fibula X-Ray 01/23/17 Signed Impressions: Service Date/Time: December 02:29 - CONCLUSION: 1. Mildly displaced proximal left fibular shaft fracture. Earnest Lenz MD Radius/Ulna X-Ray 01/23/17 Signed Impressions: Service Date/Time: December 07:05 - CONCLUSION: Small defect and associated fracture along the distal radius laterally. Jefe F. Tocci, MD Elbow X-Ray 01/23/17 0000 Signed Impressions: Service Date/Time: December 07:09 - CONCLUSION: 1. Fracture of a spur along the posterior calcaneus with soft tissue injury/laceration. 2. Small bony fragment seen medially adjacent to the medial humeral condyle. Jefe Stafford MD Ankle X-Ray 01/23/17 0000 Signed Impressions: Service Date/Time: December 02:29 - CONCLUSION: Unremarkable limited examination of the right ankle. Earnest Lenz MD Narrative Exam GENERAL: This is a 61-year-old male found out of bed walking with physical therapy. SKIN: Warm and dry. HEAD: Normocephalic. Small superficial abrasion noted to back left side of head. EYES: PERRLA ENT: No nasal bleeding or discharge. Mucous membranes pink and moist. NECK: Trachea midline. No JVD. CARDIOVASCULAR: Regular rate and rhythm. RESPIRATORY: No accessory muscle use. Lungs are clear to auscultation. Breath sounds equal bilaterally. No distress or dyspnea. GASTROINTESTINAL: BS + x 4 quads. Abdomen soft, non-tender, nondistended. MUSCULOSKELETAL: Extremities without cyanosis, or edema. Right forearm with splint and wrapped in Robert bandage. Sling . + peripheral pulses x 4 extremities. Warm with good capillary refill and sensation. MAEW. NEUROLOGICAL: Awake and alert. Normal speech and pattern. A/P Problem List: (1) Multiple fractures Assessment and Plan AGUA CALIENTE: This is a 61-year-old male who was involved in an accident with a machine. He states that his feet got caught first in a packaging machine and then he caught his arm. INJURIES: L1- L4 transverse process fracture OPEN RIGHT radius Right elbow lac LEFT fibula fracture (non-op) Procedures: 01/23: I&D RIGHT wrist Consults: Orthopedics. Left head with superficial abrasion. No need for ilir. Wash gently with soap and water pat dry. Bacitracin. Diet: Regular diet. Tolerating po diet. Encourage good po intake with each meal. Pulmonary: Encourage good pulmonary toileting. IS at bedside and pt encouraged to use. Rationale for use explained to patient, and verbalized understanding. PAIN Management: Marion po. Morphine IV for breakthrough pain. Robaxin po. Activity: OOB. PT and OT ordered. GI prophylaxis: Pepcid po. Bowel regimen: Colace and MOM. LBM: DVT prophylaxis: Mechanical VTE with SCDs. Chemical management TBD. IV Abx: Gentamicin IV. Ancef IV. DC Planning: Case management consulted for assistance with final discharge disposition. Emotional support provided to patient and family at bedside and plan of care discussed. Discussed with RN at bedside. Patient is hemodynamically stable and being managed on the med/surg floor. Bree Arias Jan 24, 2017 11:15
[2017-01-24] MEDS ORDERED: DOCU1CAP39 PO (17:25)
[2017-01-24] MEDS ORDERED: MILKSUS PO (17:25)
[2017-01-24] MEDS ORDERED: MISC-163 (17:26)
[2017-01-24] MEDS ORDERED: CANE/WOOD/MENS1 MI1 (17:33)
[2017-01-24] MEDS: MAGNESIUM HYDROXIDE SUSP 30 ML CUP PO PRN (19:27)
[2017-01-24] MEDS ORDERED: FAMOTIDINE 20 MG TAB PO SCH (21:00)
[2017-01-25] MEDS: LACTATED RINGER'S 1000 ML INJ 1,000 ML IV SCH ×2 (00:02→12:33)
[2017-01-25 00:22] VITALS: BP 137/76; PULSE 71; RESP 17; TEMP 97.4; O2SAT 95
[2017-01-25] MEDS: ceFAZolin 2 GM PREMIX 50 ML IV SCH ×2 (01:21→10:45)
[2017-01-25] MEDS: GENTAMICIN 80 MG PREMIX 100 ML IV SCH ×2 (03:04→10:46)
[2017-01-25] MEDS: METHOCARBAMOL 500 MG TAB PO SCH ×2 (05:47→12:36)
[2017-01-25] MEDS: ACETAMINOPHEN/HYDROcodone 325 MG/10 MG TAB PO PRN ×3 (05:54→14:53)
[2017-01-25 08:00] VITALS: BP 129/75; PULSE 69; RESP 16; TEMP 96.7; O2SAT 95
--- NOTE | 2017-01-25 08:53 | HHI.DS ---
Discharge Summary Admission Date Jan 23, 2017 at 04:19 Discharge Date: Jan 25, 2017 Admitting Diagnosis Open fracture right wrist (1) Multiple fractures Brief History Machinery incident. CBC/BMP: 01/24/17 0604 01/24/17 0604 Significant Findings Laboratory Tests Test 01/23/17 01/24/17 02:38 06:04 Neutrophils (%) (Auto) 70.8 % 81.2 % (16.0-70.0) (16.0-70.0) Activated Partial 21.0 SEC Thromboplast Time (24.3-30.1) Bedside Blood Urea Nitrogen 28 MG/DL (8-26) Bedside Glucose 149 MG/DL (60-95) Red Blood Count 4.29 MIL/MM3 (4.50-5.90) Hematocrit 38.6 % (39.0-51.0) Platelet Count 131 TH/MM3 (150-450) Monocytes (%) (Auto) 9.5 % (0.0-8.0) Lymphocytes # (Auto) 0.8 TH/MM3 (1.0-4.8) Chloride Level 108 MEQ/L (98-107) Estimat Glomerular Filtration 70 ML/MIN (>89) Rate Random Glucose 122 MG/DL (74-106) Calcium Level 8.3 MG/DL (8.5-10.1) Total Protein 6.1 GM/DL (6.4-8.2) Albumin 3.3 GM/DL (3.4-5.0) Imaging Last Impressions Thoracic Spine CT 01/23/17233 Signed Impressions: Service Date/Time: December 03:06 - CONCLUSION: 1. No acute findings within the thoracic spine. Moderate degenerative disc disease throughout. Earnest Lenz MD Pelvis X-Ray 01/23/17233 Signed Impressions: Service Date/Time: December 02:29 - CONCLUSION: Unremarkable examination of the pelvis. Earnest Lenz MD Maxillofacial CT 01/23/17233 Signed Impressions: Service Date/Time: December 02:57 - CONCLUSION: 1. No acute findings. Earnest Lenz MD Lumbar Spine CT 01/23/17233 Signed Impressions: Service Date/Time: December 03:06 - CONCLUSION: 1. Fractures of the right-sided transverse processes of L1-L4 with mild displacement. No other lumbar spine fractures identified. Earnest Lenz MD Head CT 01/23/17233 Signed Impressions: Service Date/Time: December 02:57 - CONCLUSION: Normal examination. Earnest Lenz MD Chest X-Ray 01/23/17233 Signed Impressions: Service Date/Time: December 02:29 - CONCLUSION: No acute disease. Earnest Lenz MD Chest CT 01/23/17233 Signed Impressions: Service Date/Time: December 03:06 - CONCLUSION: 1. No acute findings on chest CT. Specifically no effusion or pneumothorax. No fractures identified. Earnest Lenz MD Cervical Spine CT 01/23/17233 Signed Impressions: Service Date/Time: December 02:57 - CONCLUSION: 1. No acute findings. Moderate degenerative disc disease in the cervical spine with some degenerative related canal stenosis as above. Earnest Lenz MD Abdomen/Pelvis CT 01/23/17233 Signed Impressions: Service Date/Time: December 03:06 - CONCLUSION: 1. Fractures of the right transverse processes of L1-L4. No other fractures identified. No visceral injury identified. No free air or free fluid. Earnest Lenz MD Wrist X-Ray 01/23/17 Signed Impressions: Service Date/Time: December 10:29 - CONCLUSION: 2 intraoperative spot images which a radial styloid fracture. Diego Goss MD Tibia/Fibula X-Ray 01/23/17 Signed Impressions: Service Date/Time: December 02:29 - CONCLUSION: 1. Mildly displaced proximal left fibular shaft fracture. Earnest Lenz MD Radius/Ulna X-Ray 01/23/17 Signed Impressions: Service Date/Time: December 07:05 - CONCLUSION: Small defect and associated fracture along the distal radius laterally. Jefe Stafford MD Elbow X-Ray 01/23/17 Signed Impressions: Service Date/Time: December 07:09 - CONCLUSION: 1. Fracture of a spur along the posterior calcaneus with soft tissue injury/laceration. 2. Small bony fragment seen medially adjacent to the medial humeral condyle. Jefe Stafford MD Ankle X-Ray 01/23/17 0000 Signed Impressions: Service Date/Time: December 02:29 - CONCLUSION: Unremarkable limited examination of the right ankle. Earnest Lenz MD PE at Discharge GENERAL: This is a 61-year-old male found out of bed walking with physical therapy. SKIN: Warm and dry. HEAD: Normocephalic. Small superficial abrasion noted to back left side of head. EYES: PERRLA ENT: No nasal bleeding or discharge. Mucous membranes pink and moist. NECK: Trachea midline. No JVD. CARDIOVASCULAR: Regular rate and rhythm. RESPIRATORY: No accessory muscle use. Lungs are clear to auscultation. Breath sounds equal bilaterally. No distress or dyspnea. GASTROINTESTINAL: BS + x 4 quads. Abdomen soft, non-tender, nondistended. MUSCULOSKELETAL: Extremities without cyanosis, or edema. Right forearm with splint and wrapped in Robert bandage. Sling . + peripheral pulses x 4 extremities. Warm with good capillary refill and sensation. MAEW. NEUROLOGICAL: Awake and alert. Normal speech and pattern. Hospital Course [place]: This is a 61-year-old male who was involved in an accident with a machine. He states that his feet got caught first in a packaging machine and then he caught his arm. INJURIES: L1- L4 transverse process fracture OPEN RIGHT radius Right elbow lac LEFT fibula fracture (non-op) Procedures: 01/23: I&D RIGHT wrist Consults: Orthopedics. Left head with superficial abrasion. No need for ilir. Wash gently with soap and water pat dry. Bacitracin. Diet: Regular diet. Tolerating po diet. Encourage good po intake with each meal. Pulmonary: Encourage good pulmonary toileting. PAIN Management: [place] po. Morphine IV for breakthrough pain. Robaxin po. Pt has been provided a script for pain medications upon discharge. Activity: OOB. PT and OT ordered. Pt has been participating in PT and OT during his hospital stay. Pt states that he has a hemiwalker at home along with a BSC. GI prophylaxis: Pepcid po. Bowel regimen: Colace and MOM. LBM: Pt is encouraged to continue taking stool softeners while taking narcotic pain medications upon discharge to prevent constipation IV Abx: Gentamicin IV. Ancef IV - completed all required doses before discharge. Pt is provided all follow up appointments, and he is encouraged to keep these appointments. Therefore he is stable to be safely discharged home from a trauma surgery standpoint and follow up with the orthopedic physician in the outpatient setting. Thank you for allowing us to participate in his care. We wish Harley the best in his recovery. Pt Condition on Discharge: Stable Discharge Disposition: Discharge Home Discharge Instructions DIET: Follow Instructions for: As Tolerated, No Restrictions Activities you can perform: Non Weight Bearing Other Activity Instructions: Non weight bearing RIGHT upper extremity Weight bearing as tolerated bilateral lower extremities. Bree Arias Jan 25, 2017 08:53
[2017-01-25] MEDS: DOCUSATE SODIUM 100 MG CAP PO SCH (10:45)
[2017-01-25 10:46] VITALS: O2SAT 96
[2017-01-25 12:00] VITALS: BP 122/73; PULSE 70; RESP 16; TEMP 97; O2SAT 95
--- NOTE | 2017-01-25 12:11 | PD.ORT.PN ---
Subjective Subjective Remarks He is feeling better today. He has just started to be able to walk. He is unsure if he feels comfortable going home yet because he has stairs at home. Objective Vitals Vital Signs Date Time Temp Pulse Resp B/P Pulse Ox O2 Delivery O2 Flow Rate FiO2 01/25/17 10:46 96 21 01/25/17 08:00 96.7 69 16 129/75 95 01/25/17 00:22 97.4 71 17 137/76 95 01/24/17 20:25 98.0 82 17 126/66 95 01/24/17 16:00 97.8 77 18 131/70 94 I/O 01/24/17 01/24/17 01/24/17 01/25/17 01/25/17 01/25/17 06:59 14:59 22:59 06:59 14:59 22:59 Intake Total 1309 ml 720 ml 240 ml 120 ml 48 ml Output Total 700 ml Balance 609 ml 720 ml 240 ml 120 ml 48 ml Intake Oral 480 ml 720 ml 240 ml 120 ml IV Total 829 ml 48 ml Output Urine Total 700 ml # Voids 3 0 1 # Bowel Movements 0 0 0 Result Diagram: 01/24/17 0604 01/24/17 0604 Imaging Last 72 hours Impressions Thoracic Spine CT 01/23/17233 Signed Impressions: Service Date/Time: December 03:06 - CONCLUSION: 1. No acute findings within the thoracic spine. Moderate degenerative disc disease throughout. Earnest Lenz MD Pelvis X-Ray 01/23/17233 Signed Impressions: Service Date/Time: December 02:29 - CONCLUSION: Unremarkable examination of the pelvis. Earnest Lenz MD Maxillofacial CT 01/23/17233 Signed Impressions: Service Date/Time: December 02:57 - CONCLUSION: 1. No acute findings. Earnest Lenz MD Lumbar Spine CT 01/23/17233 Signed Impressions: Service Date/Time: December 03:06 - CONCLUSION: 1. Fractures of the right-sided transverse processes of L1-L4 with mild displacement. No other lumbar spine fractures identified. Earnest Lenz MD Head CT 01/23/17233 Signed Impressions: Service Date/Time: December 02:57 - CONCLUSION: Normal examination. Earnest Lenz MD Chest X-Ray 01/23/17233 Signed Impressions: Service Date/Time: December 02:29 - CONCLUSION: No acute disease. Earnest Lenz MD Chest CT 01/23/17233 Signed Impressions: Service Date/Time: December 03:06 - CONCLUSION: 1. No acute findings on chest CT. Specifically no effusion or pneumothorax. No fractures identified. Earnest Lenz MD Cervical Spine CT 01/23/17233 Signed Impressions: Service Date/Time: December 02:57 - CONCLUSION: 1. No acute findings. Moderate degenerative disc disease in the cervical spine with some degenerative related canal stenosis as above. aErnest Lenz MD Abdomen/Pelvis CT 01/23/17233 Signed Impressions: Service Date/Time: December 03:06 - CONCLUSION: 1. Fractures of the right transverse processes of L1-L4. No other fractures identified. No visceral injury identified. No free air or free fluid. Earnest Lenz MD Wrist X-Ray 01/23/17 Signed Impressions: Service Date/Time: December 10:29 - CONCLUSION: 2 intraoperative spot images which a radial styloid fracture. Diego Goss MD Wrist X-Ray 01/23/17 Signed Impressions: Service Date/Time: December 02:29 - CONCLUSION: 1. Intra-articular fracture of the distal radius with mild displacement. Earnest Lenz MD Tibia/Fibula X-Ray 01/23/17 Signed Impressions: Service Date/Time: December 02:29 - CONCLUSION: 1. Mildly displaced proximal left fibular shaft fracture. Earnest Lenz MD Radius/Ulna X-Ray 01/23/17 Signed Impressions: Service Date/Time: December 07:05 - CONCLUSION: Small defect and associated fracture along the distal radius laterally. Jefe Stafford MD Elbow X-Ray 01/23/17 Signed Impressions: Service Date/Time: December 07:09 - CONCLUSION: 1. Fracture of a spur along the posterior calcaneus with soft tissue injury/laceration. 2. Small bony fragment seen medially adjacent to the medial humeral condyle. Jefe Stafford MD Chest X-Ray 01/23/17 0000 Signed Impressions: Service Date/Time: December 11:43 - CONCLUSION: No acute disease. Scott Cowart Jr., MD Ankle X-Ray 01/23/17 0000 Signed Impressions: Service Date/Time: December 02:29 - CONCLUSION: Unremarkable limited examination of the right ankle. Earnest Lenz MD Objective Remarks Right upper extremity: Splint intact clean and dry. Intact sensation over the radial ulnar and median nerve distributions with good capillary refills. Is able fully extend his fingers and make a fist Left lower extremity: No pain with hip or knee range of motion. No pain with ankle range of motion. Distally intact sensation good capillary refills. No significant lower extremity swelling Assessment & Plan Assessment and Plan Irrigation debridement of right distal radius and olecranon bursa POD 2 Maintain splint and nonweightbearing right upper extremity Left fibula shaft fracture proximal third nonoperative treatment Weightbearing as tolerated bilateral lower extremities Continue antibiotics and may discharge home once 48 hours of antibiotics is completed Lumbar spine transverse fractures Discharge home when patient can ambulate and perform stairs. Follow-up with Dr. Hernandez or PA in 2 weeks Seth Solorzano MD Jan 25, 2017 12:11
[2017-01-25 16:00] VITALS: BP 121/74; PULSE 78; RESP 20; TEMP 98.5; O2SAT 96
--- NOTE | 2017-01-27 14:38 | MP ---
cc: RIAN HUNT DATE OF SURGERY: 01/23/2017 PREOPERATIVE DIAGNOSIS 1. Traumatic laceration to right wrist. 2. Open right distal radius fracture. 3. Laceration of right elbow. 4. Closed left fibula fracture. POSTOPERATIVE DIAGNOSIS 1. Traumatic laceration to right wrist. 2. Open right distal radius fracture. 3. Laceration of right elbow. 4. Closed left fibula fracture. SURGEON Rian Hunt MD SENIOR STRATEGY MANAGER DANIEL Young and DANIEL Araiza. The surgical procedure was assisted by my physician junior sales assistant. My P.A. presence was necessary throughout this case for the manipulation and positioning of the surgical extremity. My P.A. was assisting me throughout the duration of this procedure. The skill set of a physician junior sales assistant was medically necessary to complete this procedure. During the surgical case the surgical instrument mechanic was working at the back table and the physician junior sales assistant was directly assisting me. PROCEDURE 1. Irrigation and debridement of open right distal radius fracture. 2. Complex closure of 10 cm laceration dorsum of right wrist. 3. Irrigation and debridement of right olecranon bursa. ESTIMATED BLOOD LOSS 50 ccs. ANESTHESIA General. DETAILS OF PROCEDURE This patient known as Henrique Summers was at work when he was injured. He was caught in a machine and thrown. He landed on the concrete floor. Informed consent was obtained preoperatively and the operative site was marked. He was brought to the OR and placed on the OR table. He was given IV sedation and general anesthesia. The right arm was prepped with alcohol followed by Hibiclens and draped in the usual sterile fashion. Time-out procedure was performed. He received IV antibiotics. The procedure began with debridement of the right distal radius. Skin, subcutaneous tissue and fascia were sharply debrided with scalpel and rongeur. There was significant contamination present. All foreign material was then carefully removed. The fracture site was also visualized. There was area of missing bone over the radial styloid. The fracture was debrided with curettes and rongeurs. Overall, the bone appeared to be relatively clean. Soft tissue and bone were now thoroughly irrigated with pulsatile lavage. The wound was debrided until it was clean. At this point the radial fracture was visualized under fluoroscopy. The radial styloid was well-aligned. Because of the previous examination of the wound and no hardware will be placed at this time. Articular surface is in good position. Next, attention was turned to closure of wound. The laceration was carefully closed. The laceration was stellate and difficult to close. Subcutaneous tissue was reapproximated with 3-0 PDS. Skin was closed with 3-0 Nylon. A combination of retention suture and mattress sutures were utilized. Incision was completely closed. Next, attention was turned to the right elbow. The elbow laceration was extended proximally and distally. The subcutaneous tissue was dissected with Bovie. At this point there was some gross contamination visualized. The olecranon bursa was excised using a rongeur. There was a small cortical defect of the olecranon. There was no significant fracture noted. Bone was cleaned with curettes and rongeurs. The soft tissue and bone were now thoroughly irrigated. This was closed with 3-0 PDS and 3-0 Nylon. At this point sterile dressings were applied. Xeroform, 4x4, Sof-Rol and a sugar-tong splint were applied. The patient was awakened and transferred to the recovery room in stable condition. MD JAN Messer/KESHA /10:50 AM /2:21 PM
== END 2017-01-25 16:52 | disposition home or self-care (01) | DRG 501 ==
LOC: NEPI 02:32 → EDBD 04:19 → NEDA 04:19 → MERGE 04:19 → N06B 15:14
PROVIDERS: ADMIT Surgery Trauma Surgery; ATTEND Surgery Trauma Surgery
PROC: 0MB Bursae and Ligaments, Excision (ICD-10-PCS; 2017-01-23)
PROC: 0JDG0ZZ Extraction of Right Lower Arm Subcutaneous Tissue and Fascia, Open Approach (ICD-10-PCS; 2017-01-23)
PROC: 0JQG0ZZ Repair Right Lower Arm Subcutaneous Tissue and Fascia, Open Approach (ICD-10-PCS; principal; 2017-01-23 09:32)
DX: S52.571B Other intraarticular fracture of lower end of right radius, initial encounter for open fracture type I or II (principal); S32.019A Unspecified fracture of first lumbar vertebra, initial encounter for closed fracture; S32.029A Unspecified fracture of second lumbar vertebra, initial encounter for closed fracture; S32.039A Unspecified fracture of third lumbar vertebra, initial encounter for closed fracture; S82.832A Other fracture of upper and lower end of left fibula, initial encounter for closed fracture; S32.049A Unspecified fracture of fourth lumbar vertebra, initial encounter for closed fracture; S01.01XA Laceration without foreign body of scalp, initial encounter; S51.011A Laceration without foreign body of right elbow, initial encounter; K21.9 Gastro-esophageal reflux disease without esophagitis; W31.82XA Contact with other commercial machinery, initial encounter; Y92.69 Other specified industrial and construction area as the place of occurrence of the external cause
CPT/HCPCS: 70450; 70486; 71010; 71260; 72125; 72128; 72131; 72170; 73070; 73090; 73100; 73590; 73600; 74177; 76000; 80053; 82435; 82565; 82947; 84132; 84295; 84520; 85025; 85610; 85730; 86850; 86900; 86901; 94150; 96374; 96375; 99291; A0431-QM-SH; A0436-QM-SH; G0390; J0131; J0690; J1100; J1170; J1580; J2175; J2250; J2270; J2405; J2710; J3010; J7120; L0150; Q9967